=== PATIENT | female | born 1990 | race Caucasian/White ===

== ENCOUNTER 2020-07-14 20:38 | Emergency (ER) | payer SELFPAY ==
[~2020-07-14] VITALS: Ht 160 cm; Wt 71.0 kg
--- NOTE | 2020-07-14 20:50 | ED Abdominal Pain ---
General Chief Complaint: Abdominal/GI Problems Stated Complaint: N/V / BLOOD IN VOMIT Nursing Triage Note: PT STATES NVD SINCE 0500 THIS A.M. Sepsis Screen: Possible Severe Sepsis Risk Source of Information: Patient Exam Limitations: No Limitations History of Present Illness Date Seen by Provider: July 14, 2020 Time Seen by Provider: 20:50 Initial Comments This is a well-appearing 30-year-old female who presents to the ER via POV with her spouse for complaints of persistent nausea/vomiting/diarrhea since 0500 this a.m. reports TMC episodes of vomiting and diarrhea. States that she woke to feeling nauseous and has not been able to stop vomiting since. She has tried Pep to-Bismol at home but immediately vomited this back up. States she is at the point where she can no longer hold down liquids. Reports 10/10 diffuse upper abdominal pain, describes as intermittent cramping sensation. Denies any alleviating/aggravating factors. Denies fever, chills, cough, shortness of breath, rash, sore throat, dysuria, hematuria. Allergies and Home Medications Allergies Coded Allergies: No Known Drug Allergies (Unverified , 07/14/20) Home Medications Promethazine HCl 25 Mg Tablet, 25 MG PO Q6H PRN for NAUSEA/VOMITING Prescribed by: RANDY JOHNSON on 07/14/20 2662 Patient Home Medication List Home Medication List Reviewed: Yes Review of Systems Review of Systems Constitutional: no symptoms reported EENTM: No Symptoms Reported Respiratory: No Symptoms Reported Cardiovascular: No Symptoms Reported Gastrointestinal: See HPI Genitourinary: No Symptoms Reported Musculoskeletal: no symptoms reported Skin: no symptoms reported Psychiatric/Neurological: No Symptoms Reported Endocrine: No Symptoms Reported Hematologic/Lymphatic: No Symptoms Reported Past Tzuarux-Nhyuxs-Wvxzmn Hx Patient Social History Alcohol Use: Rarely Uses Alcohol Beverage of Choice: Beer Smoking Status: Never a Smoker Recent Infectious Disease Expo: No Recent Hopitalizations: No Seasonal Allergies Seasonal Allergies: Yes Past Medical History Surgeries: No Cardiac: No Neurological: No : No Last Menstrual Period: July 12, 2020 Genitourinary: No Gastrointestinal: No Musculoskeletal: No Endocrine: No HEENT: No Cancer: No Psychosocial: Yes Anxiety, Depression Integumentary: No Physical Exam Vital Signs Vital Signs - First Documented 07/14/20 20:41 Temp 37.3 Pulse 108 Resp 20 B/P (MAP) 156/110 (125) Pulse Ox 98 O2 Delivery Room Air Capillary Refill : Less Than 3 Seconds Height/Weight/BMI Height: '" Weight: lbs. oz. kg; 27.00 BMI Method: General Appearance: WD/WN, no apparent distress HEENT: PERRL/EOMI, normal ENT inspection, pharynx normal Neck: full range of motion, normal inspection Respiratory: lungs clear, normal breath sounds Cardiovascular: regular rate, rhythm, no murmur Gastrointestinal: normal bowel sounds, soft; No distended, No rebound; tenderness (diffuse upper abdomen ); No hepatomegaly, No spleenomegaly; other (neg kam ) Extremities: normal range of motion, normal inspection Neurologic/Psychiatric: no motor/sensory deficits, alert, normal mood/affect, oriented x 3 Skin: normal color, warm/dry Progress/Results/Core Measures Results/Orders Lab Results Laboratory Tests Test 07/14/20 20:50 07/14/20 21:00 07/14/20 22:43 Range/Units White Blood Count 10.9 4.3-11.0 10^3/uL Red Blood Count 4.98 3.80-5.11 10^6/uL Hemoglobin 16.1 H 11.5-16.0 g/dL Hematocrit 45 35-52 % Mean Corpuscular Volume 91 80-99 fL Mean Corpuscular Hemoglobin 32 25-34 pg Mean Corpuscular Hemoglobin Concent 36 32-36 g/dL Red Cell Distribution Width 13.1 10.0-14.5 % Platelet Count 367 130-400 10^3/uL Mean Platelet Volume 8.9 L 9.0-12.2 fL Immature Granulocyte % (Auto) 1 % Neutrophils (%) (Auto) 93 H 42-75 % Lymphocytes (%) (Auto) 2 L 12-44 % Monocytes (%) (Auto) 5 0-12 % Eosinophils (%) (Auto) 0 0-10 % Basophils (%) (Auto) 0 0-10 % Neutrophils # (Auto) 10.1 H 1.8-7.8 10^3/uL Lymphocytes # (Auto) 0.2 L 1.0-4.0 10^3/uL Monocytes # (Auto) 0.6 0.0-1.0 10^3/uL Eosinophils # (Auto) 0.0 0.0-0.3 10^3/uL Basophils # (Auto) 0.0 0.0-0.1 10^3/uL Immature Granulocyte # (Auto) 0.1 0.0-0.1 10^3/uL Neutrophils % (Manual) 96 % Monocytes % (Manual) 3 % Eosinophils % (Manual) 1 % Blood Morphology Comment NORMAL Sodium Level 137 135-145 MMOL/L Potassium Level 4.3 3.6-5.0 MMOL/L Chloride Level 102 98-107 MMOL/L Carbon Dioxide Level 22 21-32 MMOL/L Anion Gap 13 5-14 MMOL/L Blood Urea Nitrogen 17 7-18 MG/DL Creatinine 0.81 0.60-1.30 MG/DL Estimat Glomerular Filtration Rate > 60 BUN/Creatinine Ratio 21 Glucose Level 156 H 70-105 MG/DL Calcium Level 9.2 8.5-10.1 MG/DL Corrected Calcium 8.9 8.5-10.1 MG/DL Total Bilirubin 1.1 H 0.1-1.0 MG/DL Aspartate Amino Transf (AST/SGOT) 30 5-34 U/L Alanine Aminotransferase (ALT/SGPT) 30 0-55 U/L Alkaline Phosphatase 59 40-136 U/L Total Protein 7.9 6.4-8.2 GM/DL Albumin 4.4 3.2-4.5 GM/DL Lipase 8 8-78 U/L C-Reactive Protein High Sensitivity 7.52 H 0.00-0.50 MG/DL Urine Color YELLOW Urine Clarity SL CLOUDY Urine pH 6.0 5-9 Urine Specific Sel[place] 1.010 L 1.016-1.022 Urine Protein TRACE H NEGATIVE Urine Glucose (UA) NEGATIVE NEGATIVE Urine Ketones NEGATIVE NEGATIVE Urine Nitrite NEGATIVE NEGATIVE Urine Bilirubin NEGATIVE NEGATIVE Urine Urobilinogen 0.2 < = 1.0 MG/DL Urine Leukocyte Esterase NEGATIVE NEGATIVE Urine RBC (Auto) TRACE-I NEGATIVE Urine RBC 0-2 /HPF Urine WBC 0-2 /HPF Urine Squamous Epithelial Cells 5-10 /HPF Urine Renal Epithelial Cells NONE /HPF Urine Crystals NONE /LPF Urine Bacteria NEGATIVE /HPF Urine Casts NONE /LPF Urine Mucus NEGATIVE /LPF Urine Culture Indicated NO My Orders Orders - RANDY JOHNSON [employer] Cbc With Automated Diff (07/14/20 20:58) Comprehensive Metabolic Panel (07/14/20 20:58) Ua Culture If Indicated (07/14/20 20:58) Ns Iv 1000 Ml (Sodium Chloride 0.9%) (07/14/20 21:00) Ondansetron Injection (Zofran Injectio (07/14/20 21:00) Lipase (07/14/20 21:00) Urine Bedside (07/14/20 21:00) Manual Differential (07/14/20 20:50) Hs C Reactive Protein (07/14/20 21:25) Ct Abdomen/Pelvis W (07/14/20 21:25) Ketorolac Injection (Toradol Injection) (07/14/20 21:30) Ketorolac Injection (Toradol Injection) (07/14/20 21:31) Ondansetron Injection (Zofran Injectio (07/14/20 21:45) Promethazine Injection (Phenergan Injec (07/14/20 22:30) Ns Iv 1000 Ml (Sodium Chloride 0.9%) (07/14/20 22:30) Medications Given in ED Current Medications Medications Dose Ordered Sig/Anali Route Start Time Stop Time Status Last Admin Dose Admin Iohexol 100 ml ONCE ONCE IV 07/14/20 21:45 07/14/20 21:46 DC 07/14/20 21:46 100 ML Ketorolac Tromethamine 15 mg ONCE ONCE IVP 07/14/20 21:30 07/14/20 21:31 DC 07/14/20 22:18 15 MG Ondansetron HCl 4 mg ONCE ONCE IVP 07/14/20 21:00 07/14/20 21:01 DC 07/14/20 21:06 4 MG Ondansetron HCl 4 mg ONCE ONCE IVP 07/14/20 21:45 07/14/20 21:46 DC 07/14/20 22:16 4 MG Promethazine HCl 25 mg ONCE ONCE IVP 07/14/20 22:30 07/14/20 22:31 DC 07/14/20 22:51 25 MG Sodium Chloride 80 ml ONCE ONCE IV 07/14/20 21:45 07/14/20 21:46 DC 07/14/20 21:46 80 ML Sodium Chloride 1,000 ml @ 999 mls/hr Q1H ONCE IV 07/14/20 21:00 07/14/20 22:00 DC 07/14/20 21:06 999 MLS/HR Sodium Chloride 1,000 ml @ 999 mls/hr Q1H ONCE IV 07/14/20 22:30 07/14/20 23:30 DC 07/14/20 22:51 999 MLS/HR Vital Signs/I&O 07/14/20 07/14/20 20:41 23:38 Temp 37.3 Pulse 108 86 Resp 20 16 B/P (MAP) 156/110 (125) 128/72 Pulse Ox 98 100 O2 Delivery Room Air Room Air 07/15/20 00:00 Intake Total 2000 ml Balance 2000 ml Blood Pressure Mean: 125 Progress Progress Note : Progress Note Patient examined and in no acute distress. Orders placed for labs CBC, CMP, CRP, UA, bedside . Orders placed for 1 L of normal saline and Zofran 4 mg IV push. Will continue to monitor and reevaluate. Toradol 15mg IVP for pain. Labs reviewed and are relatively unremarkable. She does have elevation in her CRP-7.52. No elevation of white count. Orders placed for CT abdomen/pelvis with contrast. Continued to have persistent nausea/vomiting so she received an additional dose of Zofran. States that pain appears to be improving. Reported no improvement with second dose of Zofran, orders given for Phenergan 25 mg IV push to be diluted and her second liter of normal saline. Stat rad CT abdomen pelvis shows no acute pathology. Reviewed findings with patient and discussed with her that she likely has viral gastroenteritis and her symptoms should improve within 24 to 48 hours. She needs to stay hydrated at home and she can always follow-up with her primary care provider or return for any new, concerning, worsening symptoms. Reviewed discharge plan of care and she is agreeable with plan. She is to discharge home after second liter of fluids infused. She reports feeling much improved. Diagnostic Imaging Diagonstic Imaging: CT Plain Films/CT/US/NM/MRI: abdomen, pelvis Comments Impression: No acute pathology Reviewed: Reviewed Night k Study Diagonstic Imaging: CT Plain Films/CT/US/NM/MRI: abdomen, pelvis Comments [facility]. [place], [place] NAME: LOUIE TOLEDO [facility] REC#: [id number] PT STATUS: DEP ER : 1990 PHYSICIAN: RANDY JOHNSON [employer] ADMIT DATE: 07/14/20/ER Draft Date of Exam:07/14/20 CT ABDOMEN/PELVIS W PROCEDURE: CT abdomen and pelvis with contrast. TECHNIQUE: Multiple contiguous axial images were obtained through the abdomen and pelvis after administration of intravenous contrast. Auto Exposure Controls were utilized during the CT exam to meet ALARA standards for radiation dose reduction. All CT scans use one or more of the following dose optimizing techniques: automated exposure control, MA and/or KvP adjustment based on patient size and exam type or iterative reconstruction. INDICATION: Epigastric pain and right upper quadrant pain. FINDINGS: The lung bases are clear. There is good enhancement of the abdominal organs and vessels. Vessels appear normal. The liver, gallbladder and bile ducts are normal. Pancreas and spleen are normal. Adrenal glands and kidneys are normal. The stomach and small bowel are not dilated. Appendix is visualized and normal. The colon shows normal stool and gas pattern though there is a moderate amount of liquid stool in the colon to the rectum. There does appear to be bilateral adnexal cysts within the ovaries largest on the right measuring approximately 1.5 cm. Bladder is not distended. There is no free air or free fluid. No bony abnormalities. IMPRESSION: 1. No acute intra-abdominal abnormalities are demonstrated. Some liquid stool noted within the colon may be secondary to chronic enteritis. 2. Incidentally noted is a simple appearing cyst in the right ovary. These findings are concordant with the preliminary report. Dictated on workstation # [id number] Dict: 07/15/20 0716 Trans: 07/15/20 0726 [facility] [id number] Interpreted by: LISA SOTO MD Electronically signed by: Reviewed: Reviewed by Me Departure Impression Primary Impression: Gastroenteritis Disposition: 01 HOME, SELF-CARE Condition: Improved Departure-Patient Inst. Decision time for Depature: 22:50 Patient Instructions: Diarrhea in Adolescents and Adults, [id number] Add. Discharge Instructions: Plan: 1. Drink plenty of fluids. Clear liquid diet until you are no longer vomiting. Advance diet as tolerated after. 2. Take Phenergan every 6 hours as needed for nausea. 3. May take over the counter probiotic to help with diarrhea. 4. Follow up with your doctor for any persistent symptoms. 5. Return for any new, concerning, or worsening symptoms. All discharge instructions reviewed with patient and/or family. Voiced understanding. Scripts Promethazine HCl (Promethazine Tablet) 25 Mg Tablet 25 MG PO Q6H PRN for NAUSEA/VOMITING, #14 TAB 0 Refills Prov: RANDY JOHNSON [employer] PROFESSIONAL 07/14/20 RANDY JOHNSON [employer] PROFESSIONAL July 14, 2020 20:50
[2020-07-14] MEDS ORDERED: ONDANSETRON 4 MG/2 ML (SDV) Z0FRAN IVP ONE ×2 (21:00→21:45)
[2020-07-14] MEDS ORDERED: NS IV 1000 ML 1,000 ML IV ONE ×2 (21:00→22:30)
[2020-07-14 21:04] LABS: BASOPHILS % (AUTO) 0 % (0-10); EOSINOPHILS % (AUTO) 0 % (0-10); HEMATOCRIT 45 % (35-52); HEMOGLOBIN 16.1 g/dL (11.5-16.0); LYMPHOCYTES # (AUTO) 0.2 10^3/uL (1.0-4.0); LYMPHOCYTES % (AUTO) 2 % (12-44); MEAN CORPUSCULAR HEMOGLOBIN 32 pg (25-34); MEAN CORPUSCULAR HGB CONC 36 g/dL (32-36); MEAN CORPUSCULAR VOLUME 91 fL (80-99); MEAN PLATELET VOLUME 8.9 fL (9.0-12.2); MONOCYTES # (AUTO) 0.6 10^3/uL (0.0-1.0); MONOCYTES % (AUTO) 5 % (0-12); NEUTROPHILS # (AUTO) 10.1 10^3/uL (1.8-7.8); NEUTROPHILS % (AUTO) 93 % (42-75); PLATELET COUNT 367 10^3/uL (130-400); WHITE BLOOD COUNT 10.9 10^3/uL (4.3-11.0)
[2020-07-14 21:22] LABS: EOSINOPHILS % (MANUAL) 1 %; MONOCYTES % (MANUAL) 3 %; NEUTROPHILS % (MANUAL) 96 %; RBC MORPH NORMAL
[2020-07-14 21:24] LABS: ALANINE AMINOTRANSFERASE 30 U/L (0-55); ALBUMIN 4.4 GM/DL (3.2-4.5); ALKALINE PHOSPHATASE 59 U/L (40-136); BILIRUBIN,TOTAL 1.1 MG/DL (0.1-1.0); BUN/CREATININE RATIO 21; CALCIUM 9.2 MG/DL (8.5-10.1); CARBON DIOXIDE 22 MMOL/L (21-32); CHLORIDE 102 MMOL/L (98-107); CREATININE SERUM 0.81 MG/DL (0.60-1.30); GFR ESTIMATED > 60; GLUCOSE 156 MG/DL (70-105); LIPASE 8 U/L (8-78); POTASSIUM 4.3 MMOL/L (3.6-5.0); SODIUM 137 MMOL/L (135-145); TOTAL PROTEIN 7.9 GM/DL (6.4-8.2)
[2020-07-14] MEDS ORDERED: KETOROLAC 15 MG/ML VIAL IVP ONE (21:30)
[2020-07-14] MEDS ORDERED: KETOROLAC 30 MG/ML VIAL ONE (21:31)
[2020-07-14] MEDS ORDERED: IOHEXOL 350 MG/ML 100 ML (OMNIPAQUE 350) VIAL IV ONE (21:45)
[2020-07-14] MEDS ORDERED: NS 100 ML (IVPB) BAG IV ONE (21:45)
[2020-07-14] MEDS ORDERED: PROMETHAZINE INJ 25 MG/ML (PHENERGAN) AMP IVP ONE (22:30)
[2020-07-14] MEDS ORDERED: PROM25TA14 PO (22:55)
[2020-07-14 22:56] LABS: BILIRUBIN,URINE NEGATIVE (NEGATIVE); CLARITY,URINE SL CLOUDY; COLOR,URINE YELLOW; GLUCOSE, URINE (UA) NEGATIVE (NEGATIVE); KETONES,URINE NEGATIVE (NEGATIVE); LEUKOCYTE ESTERASE ,URINE NEGATIVE (NEGATIVE); NITRITE,URINE NEGATIVE (NEGATIVE); PROTEIN,URINE TRACE (NEGATIVE)
[2020-07-14 23:03] LABS: BACTERIA,URINE NEGATIVE /HPF; RBC,URINE 0-2 /HPF; WBC,URINE 0-2 /HPF
[2020-07-14 23:38] VITALS: BP 128/72
--- NOTE | 2020-07-15 07:27 | Diagnostic Imaging Report ---
PROCEDURE: CT abdomen and pelvis with contrast. TECHNIQUE: Multiple contiguous axial images were obtained through the abdomen and pelvis after administration of intravenous contrast. Auto Exposure Controls were utilized during the CT exam to meet ALARA standards for radiation dose reduction. All CT scans use one or more of the following dose optimizing techniques: automated exposure control, MA and/or KvP adjustment based on patient size and exam type or iterative reconstruction. INDICATION: Epigastric pain and right upper quadrant pain. FINDINGS: The lung bases are clear. There is good enhancement of the abdominal organs and vessels. Vessels appear normal. The liver, gallbladder and bile ducts are normal. Pancreas and spleen are normal. Adrenal glands and kidneys are normal. The stomach and small bowel are not dilated. Appendix is visualized and normal. The colon shows normal stool and gas pattern though there is a moderate amount of liquid stool in the colon to the rectum. There does appear to be bilateral adnexal cysts within the ovaries largest on the right measuring approximately 1.5 cm. Bladder is not distended. There is no free air or free fluid. No bony abnormalities. IMPRESSION: 1. No acute intra-abdominal abnormalities are demonstrated. Some liquid stool noted within the colon may be secondary to chronic enteritis. 2. Incidentally noted is a simple appearing cyst in the right ovary. These findings are concordant with the preliminary report. Dictated by: Dictated on workstation # [id number]
== END 2020-07-14 23:38 | disposition home or self-care (01) ==
LOC: ER 20:40
DX: K52.9 Noninfective gastroenteritis and colitis, unspecified (principal)
CPT/HCPCS: 36415; 74177; 80053; 81000; 83690; 84703; 85007; 85027; 86141